=== PATIENT | female | born 1965 ===

== ENCOUNTER 2021-09-25 18:13 | Emergency (ER) | payer BC ==
[~2021-09-25] VITALS: Ht 170.2 cm; Wt 80.0 kg
[2021-09-25 18:22] VITALS: BP 128/77
[2021-09-25] MEDS ORDERED: TOPUD PO (20:40)
[2021-09-25] MEDS ORDERED: LIDOCAINE HCL/EPINEPHRINE 1%-EPI 1:100,000 20 ML VIAL INFIL ONE (20:45)
== END 2021-09-25 21:00 | disposition home or self-care (01) ==
LOC: ER 18:13
DX: S01.111A Laceration without foreign body of right eyelid and periocular area, initial encounter (principal); W01.0XXA Fall on same level from slipping, tripping and stumbling without subsequent striking against object, initial encounter; Y93.89 Activity, other specified; Y92.89 Other specified places as the place of occurrence of the external cause; Y99.8 Other external cause status
CPT/HCPCS: 99281; A4217; J3490; Z7610